=== PATIENT | female | born 1985 | race Hispanic/Latino ===

== ENCOUNTER 2018-01-16 08:19 | Inpatient (IN) | payer MEDICAID ==
[~2018-01-16] VITALS: Ht 152.4 cm; Wt 65.8 kg
[2018-01-16] MEDS ORDERED: OXYTOCIN 10 USP UNITS/ML ONE ×2 (08:35→10:49)
[2018-01-16] MEDS ORDERED: LACTATED RINGERS 1000ML 1,000 ML IV PRN (08:51)
[2018-01-16] MEDS: CLINDAMYCIN 600 MG/D5% WATER 50 ML IVPB SCH ×2 (09:00→15:26)
[2018-01-16 09:11] LABS: HEMATOCRIT 33.3 % (36-48); MEAN CORPUSCULAR HEMOGLOBIN 28.2 pg (27.0-33.0); MEAN CORPUSCULAR HGB CONC 33.5 g/dL (32.0-36.0); MEAN CORPUSCULAR VOLUME 84.3 fL (79-99); PLATELET COUNT (AUTO) 221 K/uL (130-400); RED BLOOD CELL COUNT(AUTO) 3.95 MIL/uL (4.00-5.50); RED CELL DISTRIBUTION WIDTH 15.1 % (11.0-15.5)
[2018-01-16 09:19] LABS: APPEARANCE,URINE Clear (CLEAR); BILIRUBIN,URINE Negative (NEGATIVE); COLOR,URINE Yellow (YELLOW); GLUCOSE, URINE (UA) Negative (NEGATIVE); KETONES,URINE Negative (NEGATIVE); LEUKOCYTE ESTERASE ,URINE Negative (NEGATIVE); NITRATE,URINE Negative (NEGATIVE); OCCULT BLOOD,URINE Trace (NEGATIVE); PROTEIN,URINE Negative (NEGATIVE); UROBILINOGEN,URINE 0.2 mg/dL (0.2-1.0)
[2018-01-16 09:25] LABS: AMPHET/METH SCREEN,URINE NEGATIVE (NEGATIVE); BARBITURATE SCREEN, URINE NEGATIVE (NEGATIVE); BENZODIAZEPINES SCREEN,URINE NEGATIVE (NEGATIVE); CANNABINOID SCREEN,URINE NEGATIVE (NEGATIVE); COCAINE SCREEN,URINE NEGATIVE (NEGATIVE); OPIATE SCREEN,URINE NEGATIVE (NEGATIVE); PHENCYCLIDINE SCREEN,URINE NEGATIVE (NEGATIVE)
[2018-01-16 09:29] LABS: BACTERIA,URINE Rare /HPF (None Seen); RBC,URINE 0-1 /HPF (0-1); SQUAMOUS EPITHELIAL CELL,UR Rare /HPF (0-2); WBC,URINE 0-1 /HPF (0-1)
[2018-01-16] MEDS ORDERED: MEPERIDINE-PF 25 MG/ML SYG ONE (09:32)
[2018-01-16] MEDS ORDERED: MEPERIDINE-PF 50 MG/ML SYG ONE (09:32)
[2018-01-16] MEDS ORDERED: PROPOFOL 10 MG/ML 20ML VIAL IV ONE (09:36)
[2018-01-16] MEDS ORDERED: MEASLES/MUMPS/RUBELLA VACCINE, LIVE 0.5 ML/VIAL SQ PRN (10:15)
[2018-01-16] MEDS ORDERED: OXYTOCIN-LR 20 UNITS/1000 ML 1,000 ML IV SCH (10:15)
[2018-01-16] MEDS ORDERED: BENZOCAINE/LANOLIN/ALOE VERA 60 ML AEROSOL TP PRN (10:15)
[2018-01-16] MEDS ORDERED: WITCH HAZEL 1 PAD TP PRN (10:15)
[2018-01-16] MEDS ORDERED: LANOLIN 30GM OINTMENT TP PRN (10:15)
[2018-01-16] MEDS ORDERED: DIPH,PERTUSS(ACELL),TET VAC/PF 0.5 ML VIAL IM PRN (10:15)
[2018-01-16 10:20] VITALS: BP 103/66
[2018-01-16 10:50] VITALS: BP 109/59
[2018-01-16 11:50] VITALS: BP 104/65
[2018-01-16] MEDS ORDERED: PNV1TABL17 PO (15:10)
[2018-01-16 15:32] VITALS: BP 101/65
[2018-01-16] MEDS: IBUPROFEN 600 MG TABLET PO PRN (16:47)
[2018-01-16 19:23] VITALS: BP 110/76
[2018-01-16] MEDS: DOCUSATE SODIUM 100 MG CAP PO SCH (20:44)
[2018-01-16 23:15] VITALS: BP 103/63
[2018-01-17 03:37] VITALS: BP 97/63
[2018-01-17] MEDS ORDERED: CITRIC ACID/SODIUM CITRATE 30 ML UDCUP ONE (06:13)
[2018-01-17 06:16] LABS: HEMATOCRIT 26.4 % (36-48); MEAN CORPUSCULAR HEMOGLOBIN 29.6 pg (27.0-33.0); MEAN CORPUSCULAR VOLUME 84.7 fL (79-99); NUCLEATED RED BLOOD CELLS 0.1 % (0.0-0.19); PLATELET COUNT (AUTO) 197 K/uL (130-400); RED BLOOD CELL COUNT(AUTO) 3.12 MIL/uL (4.00-5.50); RED CELL DISTRIBUTION WIDTH 15.1 % (11.0-15.5); WHITE BLOOD COUNT (AUTO) 9.1 K/uL (4.8-10.8)
[2018-01-17] MEDS ORDERED: SUCCINYLCHOLINE 200MG/10ML SYR ONE (06:19)
[2018-01-17] MEDS ORDERED: ROCURONIUM BROMIDE 10MG/1ML 5ML VL ONE (06:19)
[2018-01-17] MEDS ORDERED: FENTANYL CITRATE PF 50 MCG/1 ML 2ML VIAL ONE (06:19)
[2018-01-17] MEDS ORDERED: LIDOCAINE PF 2% 5ML ABBOJECT ONE (06:19)
[2018-01-17] MEDS ORDERED: MIDAZOLAM HCL 1 MG/ML 2ML VIAL ONE (06:19)
[2018-01-17] MEDS ORDERED: PROPOFOL 10 MG/ML 20ML VIAL IV ONE (06:19)
[2018-01-17 07:00] VITALS: BP 117/80
[2018-01-17 08:19] LABS: HEPATITIS Bs ANTIGEN SCREEN P Negative (Negative)
[2018-01-17] MEDS: DOCUSATE SODIUM 100 MG CAP PO SCH (08:49)
[2018-01-17] MEDS: IBUPROFEN 600 MG TABLET PO PRN (08:50)
[2018-01-17 11:00] VITALS: BP 121/86
[2018-01-17 16:00] VITALS: BP 115/87
== END 2018-01-17 17:30 | disposition home or self-care (01) | DRG 541 ==
LOC: EDH 08:19 → LDH 08:20 → OBSVTOIN 08:20 → WSH 10:20
PROVIDERS: ADMIT Obstetrics & Gynecology; ATTEND Obstetrics & Gynecology
PROC: 10E0XZZ Delivery of Products of Conception, External Approach (ICD-10-PCS; principal; 2018-01-16)
PROC: 0UB70ZZ Excision of Bilateral Fallopian Tubes, Open Approach (ICD-10-PCS; 2018-01-16)
PROC: 0US Female Reproductive System, Reposition (ICD-10-PCS; 2018-01-16)
PROC: 10907ZC Drainage of Amniotic Fluid, Therapeutic from Products of Conception, Via Natural or Artificial Opening (ICD-10-PCS; 2018-01-16)
PROC: 3E0234Z Introduction of Serum, Toxoid and Vaccine into Muscle, Percutaneous Approach (ICD-10-PCS; 2018-01-16)
PROC: 3E0134Z Introduction of Serum, Toxoid and Vaccine into Subcutaneous Tissue, Percutaneous Approach (ICD-10-PCS; 2018-01-16)
DX: O62.3 Precipitate labor (principal); N85.5 Inversion of uterus; O09.40 Supervision of pregnancy with grand multiparity, unspecified trimester; Z37.0 Single live birth; Z3A.38 38 weeks gestation of pregnancy; Z23 Encounter for immunization
CPT/HCPCS: 36415; 80305; 81001; 85027; 86592; 86850; 86900; 86901; 87340; 90715; A4351; J0330; J2001; J2175; J2250; J2590; J2704; J3010; J3490; J7120

== ENCOUNTER 2018-10-31 23:24 | Observation (INO) | payer MEDICAID, OTHER ==
[~2018-10-31 23:24] MED LIST: PNV1TABL17 PO
[2018-11-01] MEDS ORDERED: LACTATED RINGERS 1000ML IV STA (00:01)
[2018-11-01 00:09] LABS: AMPHET/METH SCREEN,URINE NEGATIVE (NEGATIVE); BARBITURATE SCREEN, URINE NEGATIVE (NEGATIVE); BENZODIAZEPINES SCREEN,URINE NEGATIVE (NEGATIVE); CANNABINOID SCREEN,URINE NEGATIVE (NEGATIVE); COCAINE SCREEN,URINE NEGATIVE (NEGATIVE); OPIATE SCREEN,URINE NEGATIVE (NEGATIVE); PHENCYCLIDINE SCREEN,URINE NEGATIVE (NEGATIVE)
[2018-11-01] MEDS ORDERED: LACTATED RINGERS 1000ML 1,000 ML IV SCH ×2 (00:15→00:45)
[2018-11-01 08:01] LABS: APPEARANCE,URINE Clear (CLEAR); BILIRUBIN,URINE Negative (NEGATIVE); COLOR,URINE Yellow (YELLOW); GLUCOSE, URINE (UA) Negative (NEGATIVE); KETONES,URINE Negative (NEGATIVE); LEUKOCYTE ESTERASE ,URINE Negative (NEGATIVE); NITRATE,URINE Negative (NEGATIVE); OCCULT BLOOD,URINE Negative (NEGATIVE); PROTEIN,URINE Negative (NEGATIVE); UROBILINOGEN,URINE 0.2 mg/dL (0.2-1.0)
== END 2018-11-01 00:30 | disposition home or self-care (01) ==
LOC: EDH 23:24 → LDH 23:25
PROVIDERS: ADMIT Obstetrics & Gynecology; ATTEND Obstetrics & Gynecology
DX: O42.912 Preterm premature rupture of membranes, unspecified as to length of time between rupture and onset of labor, second trimester (principal); Z3A.27 27 weeks gestation of pregnancy; Z79.899 Other long term (current) drug therapy
CPT/HCPCS: 76801; 80305; 81003; 99284; A4351; G0378; J7120; 96360